=== PATIENT | female | born 1940 | race Caucasian/White ===

== ENCOUNTER 2016-08-18 09:36 | Day surgery (SDC) | payer MEDICARE, OTHER ==
--- NOTE | ~2016-08-18 | EGD ---
EGD REPORT [facility] [address] [address] NAME: MARYLU FRIAS : [birth year] STATUS : REG [facility]#: [id number] AGE: 76 ADM/REG DATE : 08/18/16 MR#: [id number] REPORT SERV DATE: 08/18/16 DICTATED BY: ANA JETER DATE: 08/18/16 REPORT STATUS : Draft TRANSCRIBED BY: [employer] DATE: 08/18/16 [facility] Patient Name: Marylu Frias Date of : 1940 Attending MD: ANA JETER MD Procedure Date No Time: 08/18/2016 Procedure: Upper GI endoscopy Indications: Epigastric abdominal pain, Heartburn, Suspected esophageal reflux, Nausea Referring MD: ARASH HAWK MD Medicines: as per anesthesia Complications: No immediate complications. Procedure: Pre-Anesthesia Assessment: - ASA Grade Assessment: III - A patient with severe systemic disease. After obtaining informed consent, the endoscope was passed under direct vision. Throughout the procedure, the patient's blood pressure, pulse, and oxygen saturations were monitored continuously. The GIF [id number] was introduced through the mouth, and advanced to the third part of duodenum. The upper GI endoscopy was accomplished without difficulty. The patient tolerated the procedure. Findings: Evidence of a Eddi fundoplication was found at the gastroesophageal junction. The wrap appeared intact. This was traversed. A few sessile polyps were found in the gastric body. Biopsies were taken with a cold forceps for histology. The examined duodenum was normal. Impression: - A Eddi fundoplication was found. The wrap appears intact. - A few gastric polyps. Biopsied. - Normal examined duodenum. Recommendation: - Await pathology results. Procedure Code(s): --- Professional --- 74358, Esophagogastroduodenoscopy, flexible, transoral; with biopsy, single or multiple Diagnosis Code(s): --- Professional --- Z98.89, Other specified postprocedural states K31.7, Polyp of stomach and duodenum EGD REPORT [address] [address] NAME: MARYLU FRIAS : 44 STATUS : REG [facility] [place] [facility] [place] PAT#: [id number] AGE: 76 ADM/REG DATE : 08/18/16 MR#: [id number] REPORT SERV DATE: 08/18/16 DICTATED BY: ANA JETER. DATE: 08/18/16 REPORT STATUS : Draft TRANSCRIBED BY: [employer] DATE: 08/18/16 R10.13, Epigastric pain R12, Heartburn R11.0, Nausea CPT copyright 2013 [employer]. All rights reserved. The codes documented in this report are preliminary and upon mask layout designer review may be revised to meet current compliance requirements. ANA JETER MD 08/18/2016 11:37 AM This report has been signed electronically. Number of Addenda: 0 Note Initiated On: 08/18/2016 10:25 AM Scope Withdrawal Time 0 hours 0 minutes 0 seconds
[~2016-08-18 09:36] MED LIST: ALLEGRA180 PO; APREMILAST PO; ATV.5 PO; B121000P IM; C25 PO; C5 PO; COLCHICINE PO; COMBIVENT RESPIM4 GM INH; COSENTYX SQ; EMBREL PO; FLAG500TAB PO; FLONASE NAS; FOLIC PO; HYDROCHLOROT12.5 MG PO; K-TABS10 MEQ PO; LEVAQUIN750 MG PO; LEVOTHYROXIN50 MCG PO; LOP25 PO; LOTENSIN HCT1 TAB PO; NEXIUM40 PO; OTEZLA PO; PAX20 PO; PREDNISONE2.5 MG PO; PROBENECID PO; PYRID60 PO; SINCR25100 PO; SYN075 PO; TITRALALIQ PO; ZOCOR20 PO; ZOFRAN8 PO; [UNRECOGNIZED DRUG - CODE] IM
[2016-08-18 10:19] LABS: INTERNATIONAL NORMAL RATI 1.1 UNITS (-)
[2016-08-18 10:22] LABS: PROTIME (NOT ORD) 13.9 SEC (12.0-14.5)
== END 2016-08-18 23:59 | disposition home or self-care (01) ==
LOC: DMU 09:36
PROVIDERS: Anesthesiology; Internal Medicine Gastroenterology
PROC: 0DB68ZX Excision of Stomach, Via Natural or Artificial Opening Endoscopic, Diagnostic (ICD-10-PCS; principal; 2016-08-18 10:00)
DX: K31.7 Polyp of stomach and duodenum (principal); K21.0 Gastro-esophageal reflux disease with esophagitis; I10 Essential (primary) hypertension; E03.9 Hypothyroidism, unspecified; E83.119 Hemochromatosis, unspecified; G14 Postpolio syndrome; G47.33 Obstructive sleep apnea (adult) (pediatric); J45.909 Unspecified asthma, uncomplicated; M06.9 Rheumatoid arthritis, unspecified; M81.0 Age-related osteoporosis without current pathological fracture; N20.0 Calculus of kidney; L40.9 Psoriasis, unspecified; H91.92 Unspecified hearing loss, left ear; Z86.718 Personal history of other venous thrombosis and embolism; Z86.711 Personal history of pulmonary embolism; Z88.2 Allergy status to sulfonamides; Z88.4 Allergy status to anesthetic agent; Z88.8 Allergy status to other drugs, medicaments and biological substances; Z88.1 Allergy status to other antibiotic agents; Z79.01 Long term (current) use of anticoagulants; Z79.51 Long term (current) use of inhaled steroids; Z79.899 Other long term (current) drug therapy; Z90.89 Acquired absence of other organs; Z90.710 Acquired absence of both cervix and uterus; Z90.721 Acquired absence of ovaries, unilateral; Z98.41 Cataract extraction status, right eye; Z98.42 Cataract extraction status, left eye; Z98.890 Other specified postprocedural states
CPT/HCPCS: 85610; 88305